=== PATIENT | male | born 1930 | race Asian ===

== ENCOUNTER 2021-01-04 16:06 | Emergency (ER) | payer OTHER ==
[~2021-01-04] VITALS: Ht 167.6 cm; Wt 57.0 kg
[2021-01-04 17:26] LABS: BASOPHILS % 0.3 % (0.0-2.0); EOSINOPHILS % 0.2 % (0.0-5.0); HEMATOCRIT. 36.2 % (42.0-52.0); LYMPHOCYTES % 8.5 % (20.0-50.0); MEAN CORPUSCULAR HEMOGLOBIN 32.3 pg (28.0-32.0); MEAN CORPUSCULAR VOLUME 97.7 fL (80.0-94.0); MEAN PLATELET VOLUME 7.8 fl (7.4-10.4); MONOCYTES % 6.2 % (2.0-8.0); NEUTROPHILS % 84.8 % (40.0-76.0); PLATELET 306 x1000/uL (130-400); RED CELL DISTRIBUTION WIDTH 14.5 % (11.6-14.6)
[2021-01-04 17:30] LABS: CHLORIDE 99 mEq/L (98-107)
[2021-01-04 17:37] LABS: ETHANOL BLOOD < 10 mg/dL
[2021-01-04] MEDS ORDERED: SODIUM CHLORIDE 0.9% 1,000 ML IV ONE (19:15)
[2021-01-04 19:48] LABS: CLARITY URINE CLEAR (CLEAR); COLOR URINE DARK YELLOW (YELLOW); KETONES URINE TRACE (NEGATIVE); LEUKOCYTE ESTERASE URINE TRACE (NEGATIVE); NITRITE URINE NEGATIVE (NEGATIVE); OCCULT BLOOD URINE NEGATIVE (NEGATIVE); PROTEIN URINE TRACE (NEGATIVE); SPECIFIC GRAVITY URINE 1.034 (1.005-1.030)
[2021-01-04 20:09] LABS: *AMPHETAMINES SCREEN URINE NEGATIVE (NEGATIVE); *BARBITURATES SCREEN URINE NEGATIVE (NEGATIVE); *BENZODIAZEPINES SCREEN URINE NEGATIVE (NEGATIVE); *COCAINE SCREEN URINE NEGATIVE (NEGATIVE); METHADONE URINE SCREEN NEGATIVE (NEGATIVE); OPIATES URINE SCREEN NEGATIVE (NEGATIVE)
[2021-01-04 20:10] LABS: CANNABINOID URINE SCREEN NEGATIVE (NEGATIVE); PHENCYCLIDINE URINE SCREEN NEGATIVE (NEGATIVE)
[2021-01-04 20:45] VITALS: BP 107/53
== END 2021-01-04 21:30 | disposition home or self-care (01) ==
LOC: ER 16:06
DX: R55 Syncope and collapse (principal); E86.0 Dehydration; D72.829 Elevated white blood cell count, unspecified; I25.10 Atherosclerotic heart disease of native coronary artery without angina pectoris; Z95.1 Presence of aortocoronary bypass graft; Z79.899 Other long term (current) drug therapy
CPT/HCPCS: 36415; 80053; 80305; 80320; 81003; 84484; 85025; 93005; 96360; 99284; J7030; G0480

== ENCOUNTER 2021-01-05 02:27 | Inpatient (IN) | payer OTHER ==
[~2021-01-05] VITALS: Ht 167.6 cm; Wt 55.4 kg
[2021-01-05] MEDS ORDERED: SODIUM CHLORIDE 0.9% 1,000 ML IV ONE (03:00)
[2021-01-05 03:44] LABS: HEMATOCRIT. 32.1 % (42.0-52.0); HEMOGLOBIN. 10.1 g/dL (14.0-18.0); MEAN CORPUSCULAR HEMOGLOBIN 31.7 pg (28.0-32.0); MEAN CORPUSCULAR VOLUME 101.3 fL (80.0-94.0); PLATELET 293 x1000/uL (130-400); RED BLOOD CELL COUNT 3.17 mill/uL (4.7-6.1); RED CELL DISTRIBUTION WIDTH 15.3 % (11.6-14.6)
[2021-01-05 03:57] LABS: CHLORIDE 95 mEq/L (98-107)
[2021-01-05] MEDS ORDERED: VANCOMYCIN 1 G PREMIX 200 ML IV SCH (04:45)
[2021-01-05] MEDS ORDERED: CEFEPIME 1,000 MG in DEXTROSE 5% WATER 50 ML IV SCH (04:45)
[2021-01-05] MEDS ORDERED: KETOROLAC 15MG/ML VIAL IV ONE (05:30)
[2021-01-05 05:45] LABS: PLATELET ESTIMATE NORMAL
[2021-01-05] MEDS ORDERED: ONDANSETRON HCL 4MG/2ML INJ IV PRN (07:15)
[2021-01-05] MEDS ORDERED: GUAIFENESIN 200MG/10ML SUGAR FREE UDC PO PRN (07:15)
[2021-01-05] MEDS ORDERED: TRAMADOL 50MG TABLET PO PRN (07:15)
[2021-01-05] MEDS ORDERED: ACETAMINOPHEN 325MG TABLET PO PRN ×2 (07:15)
[2021-01-05] MEDS ORDERED: SODIUM CHLORIDE 0.9% 1000ML BAG (SEPSIS BOLUS) IV NR (07:15)
[2021-01-05] MEDS ORDERED: CLONIDINE 0.1MG TABLET PO PRN (07:15)
[2021-01-05] MEDS ORDERED: ENOXAPARIN 40MG/0.4ML SYR SUBCUT SCH (07:15)
[2021-01-05] MEDS ORDERED: NITROGLYCERIN 0.4MG TABLET SL SL PRN (07:15)
[2021-01-05] MEDS ORDERED: MAGNESIUM/ALUMINUM HYDROXIDE/SIMETHICONE 30ML UDC PO PRN (07:15)
[2021-01-05] MEDS ORDERED: ZOLPIDEM TARTRATE 5MG TABLET PO PRN (07:15)
[2021-01-05] MEDS ORDERED: DOCUSATE SODIUM 100MG CAPSULE PO PRN (07:15)
[2021-01-05 07:29] LABS: T4 FREE 1.31 ng/dL (0.76-1.46)
[2021-01-05 07:53] LABS: FOLIC ACID (FOLATE) SERUM 3.6 ng/mL (>5.38)
[2021-01-05] MEDS ORDERED: NALOXONE HCL 0.4MG/ML VIAL IV PRN (08:00)
[2021-01-05] MEDS: CHOLECALCIFEROL (D3) 1000 UNIT TABLET PO SCH (09:00)
[2021-01-05] MEDS: FAMOTIDINE 20MG TABLET PO SCH (09:00)
[2021-01-05] MEDS: ENOXAPARIN 30MG/0.3ML SYR SUBCUT SCH (09:00)
[2021-01-05] MEDS: ZINC SULFATE 220 MG ( 50 ) CAPSULE PO SCH (09:00)
[2021-01-05] MEDS: ASCORBIC ACID 500 MG TABLET PO SCH ×2 (09:00→20:02)
[2021-01-05] MEDS: ASPIRIN 325MG EC TABLET PO SCH (09:00)
[2021-01-05] MEDS ORDERED: PIPERACILLIN/TAZ 3.375G PREMIX 50 ML IV SCH (09:00)
[2021-01-05 15:07] VITALS: BP 105/62
[2021-01-05 16:02] VITALS: BP 105/62
[2021-01-05] MEDS: SODIUM CHLORIDE 0.9% 1,000 ML IV SCH (16:56)
[2021-01-05] MEDS ORDERED: FOLIC ACID 1 MG in SODIUM CHLORIDE 0.9% 500 ML IV NR (18:00)
[2021-01-05 19:02] LABS: CLARITY URINE CLEAR (CLEAR); COLOR URINE YELLOW (YELLOW); KETONES URINE TRACE (NEGATIVE); LEUKOCYTE ESTERASE URINE NEGATIVE (NEGATIVE); NITRITE URINE NEGATIVE (NEGATIVE); OCCULT BLOOD URINE TRACE (NEGATIVE); PH URINE 5.5 (4.5-8.0); PROTEIN URINE NEGATIVE (NEGATIVE); SPECIFIC GRAVITY URINE 1.015 (1.005-1.030); UROBILINOGEN URINE 0.2 E.U./dL (0.2-1.0)
[2021-01-05 19:13] LABS: *BARBITURATES SCREEN URINE NEGATIVE (NEGATIVE)
[2021-01-05 19:14] LABS: *AMPHETAMINES SCREEN URINE NEGATIVE (NEGATIVE); *COCAINE SCREEN URINE NEGATIVE (NEGATIVE); CANNABINOID URINE SCREEN NEGATIVE (NEGATIVE); METHADONE URINE SCREEN NEGATIVE (NEGATIVE); OPIATES URINE SCREEN NEGATIVE (NEGATIVE); PHENCYCLIDINE URINE SCREEN NEGATIVE (NEGATIVE)
[2021-01-05 19:15] LABS: *BENZODIAZEPINES SCREEN URINE NEGATIVE (NEGATIVE)
[2021-01-05 20:00] VITALS: BP 110/63
[2021-01-05] MEDS: PIPERACILLIN/TAZOBACTAM 3.375 G in DEXTROSE 5% WATER 50 ML IV SCH (20:02)
[2021-01-06] VITALS (13 sets, daily range): BP systolic 83–141; BP diastolic 26–69
[2021-01-06 02:05] LABS: CREATINE KINASE MB FRACTION 19.9 ng/mL (0.5-3.6)
[2021-01-06] MEDS: SODIUM CHLORIDE 0.9% 1,000 ML IV SCH ×3 (02:57→20:52)
[2021-01-06] MEDS: ASPIRIN 325MG EC TABLET PO SCH (09:22)
[2021-01-06] MEDS: ASCORBIC ACID 500 MG TABLET PO SCH (09:22)
[2021-01-06] MEDS: CHOLECALCIFEROL (D3) 1000 UNIT TABLET PO SCH (09:22)
[2021-01-06] MEDS: PIPERACILLIN/TAZOBACTAM 3.375 G in DEXTROSE 5% WATER 50 ML IV SCH (09:22)
[2021-01-06] MEDS: FAMOTIDINE 20MG TABLET PO SCH (09:23)
[2021-01-06] MEDS: FOLIC ACID 1MG TABLET PO SCH (09:23)
[2021-01-06] MEDS: ZINC SULFATE 220 MG ( 50 ) CAPSULE PO SCH (09:23)
[2021-01-06 10:17] LABS: BASOPHILS % 0.1 % (0.0-2.0); EOSINOPHILS % 0.1 % (0.0-5.0); HEMATOCRIT. 24.2 % (42.0-52.0); HEMOGLOBIN. 8.3 g/dL (14.0-18.0); LYMPHOCYTES % 7.2 % (20.0-50.0); MEAN CORPUSCULAR HEMOGLOBIN 33.1 pg (28.0-32.0); MEAN CORPUSCULAR VOLUME 96.9 fL (80.0-94.0); MONOCYTES % 4.7 % (2.0-8.0); NEUTROPHILS % 87.9 % (40.0-76.0); PLATELET 216 x1000/uL (130-400); RED CELL DISTRIBUTION WIDTH 14.8 % (11.6-14.6)
[2021-01-06 11:04] LABS: CHLORIDE 112 mEq/L (98-107)
[2021-01-06 11:17] LABS: PHOSPHORUS 1.6 mg/dL (2.5-4.9)
[2021-01-06] MEDS: ENOXAPARIN 30MG/0.3ML SYR SUBCUT SCH (11:37)
[2021-01-06] MEDS: VANCOMYCIN 1 G PREMIX 200 ML IV SCH (13:51)
[2021-01-06 17:12] LABS: BG BASE EXCESS -11.2 mmol/L (-2.0-2.0); BG CARBOXYHEMOGLOBIN 0.2 % (0.5-1.5); BG DEOXYHEMOGLOBIN 0.6 % (0.0-5.0); BG HCO3 ACT 12.6 mmol/L (22.0-26.0); BG METHEMOGLOBIN 0.7 % (0.0-1.5); BG OXYGEN SATURATION 99.4 % (92.0-98.5); BG OXYHEMOGLOBIN 98.5 % (94.0-97.0); BG PCO2 20.8 mmHg (35.0-45.0); BG PH 7.401 (7.350-7.450); BG PO2 433.7 mmHg (75.0-100.0); BG SAMPLE SITE LEFT RADIAL; BG TOTAL HEMOGLOBIN 5.7 g/dL (12.0-18.0); BG VENT MODE MASK - NRB
[2021-01-06] MEDS ORDERED: SODIUM CHLORIDE 0.9% 100 ML IV ONE (17:30)
[2021-01-06] MEDS ORDERED: PANTOPRAZOLE 80 MG in SODIUM CHLORIDE 0.9% 100 ML IV SCH (18:00)
[2021-01-06] MEDS ORDERED: SODIUM BICARBONATE 8.4% 1 MEQ/ML 50ML SYR IV NR (18:00)
[2021-01-06] MEDS: PANTOPRAZOLE SODIUM 40 MG/VIAL IV SCH (18:04)
[2021-01-06] MEDS ORDERED: DOPAMINE 800MG PREMIX (DOUBLE) 250 ML IV PRN (21:45)
[2021-01-06] MEDS ORDERED: MIDAZOLAM 100MG/100ML PMX 100 ML IV PRN (21:45)
[2021-01-06] MEDS ORDERED: FENTANYL CITRATE/PF 2,500 MCG in SODIUM CHLORIDE 0.9% 200 ML IV PRN (22:00)
[2021-01-06] MEDS: PANTOPRAZOLE 80 MG in SODIUM CHLORIDE 0.9% 100 ML IV SCH (22:57)
[2021-01-06] MEDS ORDERED: NOREPINEPHRINE 8 MG in DEXT 5% WATER 242 ML IV PRN (23:00)
[2021-01-06] MEDS: MIDAZOLAM HCL 100 MG in SODIUM CHLORIDE 0.9% 100 ML IV PRN (23:23)
[2021-01-06] MEDS ORDERED: OCTREOTIDE ACETATE 50 MCG/ML 1ML IV SCH (23:30)
[2021-01-06 23:39] LABS: BG BASE EXCESS -22.7 mmol/L (-2.0-2.0); BG CARBOXYHEMOGLOBIN 0.2 % (0.5-1.5); BG DEOXYHEMOGLOBIN 0.8 % (0.0-5.0); BG FRACTION INSPIRED OXYGEN 100; BG HCO3 ACT 5.8 mmol/L (22.0-26.0); BG METHEMOGLOBIN 0.5 % (0.0-1.5); BG OXYGEN SATURATION 99.2 % (92.0-98.5); BG OXYHEMOGLOBIN 98.5 % (94.0-97.0); BG PCO2 20.7 mmHg (35.0-45.0); BG PH 7.065 (7.350-7.450); BG PO2 517.8 mmHg (75.0-100.0); BG SAMPLE SITE RIGHT FEMORAL; BG TOTAL HEMOGLOBIN 9.7 g/dL (12.0-18.0); BG VENT MODE VENT - AC
[2021-01-07] VITALS (97 sets, daily range): BP systolic 93–144; BP diastolic 46–77
[2021-01-07] MEDS: VASOPRESSIN 20 UNIT in SODIUM CHLORIDE 0.9% 99 ML IV PRN ×3 (00:02→17:24)
[2021-01-07] MEDS: OCTREOTIDE 1,000 MCG in SODIUM CHLORIDE 0.9% 98 ML IV SCH ×2 (00:03→17:24)
[2021-01-07] MEDS ORDERED: SODIUM BICARBONATE 8.4% 1 MEQ/ML 50ML SYR IV SCH ×3 (00:15→03:00)
[2021-01-07 00:17] LABS: CHLORIDE 116 mEq/L (98-107)
[2021-01-07 00:24] LABS: HEMATOCRIT. 28.8 % (42.0-52.0); HEMOGLOBIN. 9.3 g/dL (14.0-18.0); MEAN CORPUSCULAR HEMOGLOBIN 32.4 pg (28.0-32.0); MEAN PLATELET VOLUME 8.3 fl (7.4-10.4); PLATELET 175 x1000/uL (130-400); RED BLOOD CELL COUNT 2.88 mill/uL (4.7-6.1)
[2021-01-07] MEDS ORDERED: LACTULOSE 20G/30ML UDC PO SCH (00:30)
[2021-01-07 00:31] LABS: INR 1.6; PARTIAL THROMBOPLASTIN TIME 50.2 sec (23.4-31.0); PROTHROMBIN TIME 16.3 sec (9.6-11.0)
[2021-01-07] MEDS: VANCOMYCIN 1 G PREMIX 200 ML IV SCH (01:27)
[2021-01-07 04:06] LABS: BG CARBOXYHEMOGLOBIN 0.3 % (0.5-1.5); BG DEOXYHEMOGLOBIN 1.3 % (0.0-5.0); BG FRACTION INSPIRED OXYGEN 70; BG METHEMOGLOBIN 0.6 % (0.0-1.5); BG OXYGEN SATURATION 98.7 % (92.0-98.5); BG OXYHEMOGLOBIN 97.8 % (94.0-97.0); BG PCO2 26.5 mmHg (35.0-45.0); BG PH 7.538 (7.350-7.450); BG PO2 308.9 mmHg (75.0-100.0); BG SAMPLE SITE LEFT RADIAL; BG TOTAL HEMOGLOBIN 8.8 g/dL (12.0-18.0); BG VENT MODE VENT - AC
[2021-01-07] MEDS: HYDROCORTISONE SOD SUCCINATE 100 MG/2 ML VIAL IV SCH ×3 (05:12→21:08)
[2021-01-07] MEDS: PIPERACILLIN/TAZOBACTAM 3.375 G in DEXTROSE 5% WATER 50 ML IV SCH ×3 (06:53→20:22)
[2021-01-07 07:06] LABS: PLATELET ESTIMATE NORMAL
[2021-01-07 07:09] LABS: CHLORIDE 114 mEq/L (98-107)
[2021-01-07 07:15] LABS: PHOSPHORUS 2.3 mg/dL (2.5-4.9)
[2021-01-07] MEDS: MIDAZOLAM HCL 100 MG in SODIUM CHLORIDE 0.9% 100 ML IV PRN (07:45)
[2021-01-07 07:46] LABS: HEMATOCRIT. 30.5 % (42.0-52.0); HEMOGLOBIN. 10.6 g/dL (14.0-18.0); MEAN CORPUSCULAR HEMOGLOBIN 32.6 pg (28.0-32.0); MEAN CORPUSCULAR VOLUME 93.5 fL (80.0-94.0); MEAN PLATELET VOLUME 8.7 fl (7.4-10.4); PLATELET 137 x1000/uL (130-400); RED BLOOD CELL COUNT 3.26 mill/uL (4.7-6.1); RED CELL DISTRIBUTION WIDTH 14.7 % (11.6-14.6)
[2021-01-07] MEDS ORDERED: DEXTROSE 50% WATER 50ML SYRINGE IV PRN (08:00)
[2021-01-07] MEDS: INSULIN LISPRO 100 UNITS/ML SUBCUT SCH ×3 (08:20→18:29)
[2021-01-07] MEDS: IPRATROPIUM/ALBUTEROL 0.5-3(2.5)MG/3ML NEB NEB PRN ×3 (08:35→16:18)
[2021-01-07] MEDS: SODIUM CHLORIDE 0.45% 1,000 ML IV SCH ×2 (08:48→20:23)
[2021-01-07] MEDS: ASCORBIC ACID 500 MG TABLET PO SCH ×2 (09:00→20:22)
[2021-01-07] MEDS: PANTOPRAZOLE SODIUM 40 MG/VIAL IV SCH ×2 (09:00→18:26)
[2021-01-07] MEDS: CHOLECALCIFEROL (D3) 1000 UNIT TABLET PO SCH (09:00)
[2021-01-07] MEDS: FOLIC ACID 1MG TABLET PO SCH (09:00)
[2021-01-07] MEDS: ZINC SULFATE 220 MG ( 50 ) CAPSULE PO SCH (09:00)
[2021-01-07] MEDS: PHYTONADIONE 10MG/ML AMP SUBCUT SCH (11:06)
[2021-01-07] MEDS: PANTOPRAZOLE 80 MG in SODIUM CHLORIDE 0.9% 100 ML IV SCH (11:07)
[2021-01-07 11:20] LABS: BG BASE EXCESS -1.3 mmol/L (-2.0-2.0); BG CARBOXYHEMOGLOBIN 0.2 % (0.5-1.5); BG DEOXYHEMOGLOBIN 1.4 % (0.0-5.0); BG FRACTION INSPIRED OXYGEN 50; BG HCO3 ACT 21.1 mmol/L (22.0-26.0); BG METHEMOGLOBIN 0.2 % (0.0-1.5); BG OXYGEN SATURATION 98.6 % (92.0-98.5); BG OXYHEMOGLOBIN 98.2 % (94.0-97.0); BG PH 7.496 (7.350-7.450); BG PO2 229.4 mmHg (75.0-100.0); BG SAMPLE SITE LEFT BRACHIAL; BG TOTAL HEMOGLOBIN 10.1 g/dL (12.0-18.0); BG VENT MODE VENT - AC
[2021-01-07] MEDS: BLOOD SUGAR DIAGNOSTIC STRIP TEST SCH ×2 (12:39→18:00)
[2021-01-07] MEDS: LACTULOSE 20G/30ML UDC PO SCH ×2 (14:00→21:08)
[2021-01-07 15:16] LABS: HEMATOCRIT 22.9 % (42.0-52.0); HEMOGLOBIN 7.8 g/dL (14.0-18.0)
[2021-01-07 15:34] LABS: INR 1.3; PROTHROMBIN TIME 14.1 sec (9.6-11.0)
[2021-01-07] MEDS ORDERED: PANTOPRAZOLE SODIUM 40 MG/VIAL IV SCH (17:00)
[2021-01-07] MEDS ORDERED: VANCOMYCIN 1 G PREMIX 200 ML IV NR (18:00)
[2021-01-07 21:09] LABS: PLATELET ESTIMATE NORMAL
[2021-01-07 23:29] LABS: HEMOGLOBIN 7.1 g/dL (14.0-18.0)
[2021-01-07 23:35] LABS: HEMATOCRIT 20.4 % (42.0-52.0)
[2021-01-08] VITALS (95 sets, daily range): BP systolic 89–154; BP diastolic 42–81
[2021-01-08] MEDS: VASOPRESSIN 20 UNIT in SODIUM CHLORIDE 0.9% 99 ML IV PRN (01:03)
[2021-01-08] MEDS: INSULIN LISPRO 100 UNITS/ML SUBCUT SCH ×5 (01:04→23:51)
[2021-01-08 05:36] LABS: HEMATOCRIT. 25.6 % (42.0-52.0); HEMOGLOBIN. 8.9 g/dL (14.0-18.0); MEAN CORPUSCULAR HEMOGLOBIN 31.9 pg (28.0-32.0); MEAN CORPUSCULAR VOLUME 91.6 fL (80.0-94.0); PLATELET 62 x1000/uL (130-400); RED BLOOD CELL COUNT 2.79 mill/uL (4.7-6.1); RED CELL DISTRIBUTION WIDTH 14.5 % (11.6-14.6)
[2021-01-08 05:47] LABS: INR 1.2; PROTHROMBIN TIME 12.6 sec (9.6-11.0)
[2021-01-08] MEDS: LACTULOSE 20G/30ML UDC PO SCH ×2 (06:00→13:24)
[2021-01-08] MEDS: BLOOD SUGAR DIAGNOSTIC STRIP TEST SCH ×5 (06:01→23:51)
[2021-01-08] MEDS: SODIUM CHLORIDE 0.45% 1,000 ML IV SCH (06:09)
[2021-01-08] MEDS: HYDROCORTISONE SOD SUCCINATE 100 MG/2 ML VIAL IV SCH ×3 (06:09→21:03)
[2021-01-08 07:03] LABS: CHLORIDE 115 mEq/L (98-107)
[2021-01-08] MEDS: IPRATROPIUM/ALBUTEROL 0.5-3(2.5)MG/3ML NEB NEB PRN ×3 (08:18→16:27)
[2021-01-08] MEDS ORDERED: FOLIC ACID 1MG TABLET PO SCH (09:00)
[2021-01-08] MEDS: CHOLECALCIFEROL (D3) 1000 UNIT TABLET PO SCH (09:00)
[2021-01-08] MEDS: ZINC SULFATE 220 MG ( 50 ) CAPSULE PO SCH (09:00)
[2021-01-08] MEDS: ASCORBIC ACID 500 MG TABLET PO SCH ×2 (09:00→20:05)
[2021-01-08] MEDS: FOLIC ACID 1MG TABLET PO SCH (09:00)
[2021-01-08] MEDS: PHYTONADIONE 10MG/ML AMP SUBCUT SCH (10:50)
[2021-01-08] MEDS: PANTOPRAZOLE SODIUM 40 MG/VIAL IV SCH ×2 (10:50→17:48)
[2021-01-08] MEDS: PIPERACILLIN/TAZOBACTAM 3.375 G in DEXTROSE 5% WATER 50 ML IV SCH ×3 (10:51→21:03)
[2021-01-08 12:10] LABS: PLATELET ESTIMATE DECREASED
[2021-01-08 12:21] LABS: HEMOGLOBIN 9.3 g/dL (14.0-18.0)
[2021-01-08] MEDS: KCL 20MEQ/100ML PREMIX 100 ML IV SCH ×2 (13:23→17:49)
[2021-01-08] MEDS: DEXTROSE 5% WATER 1,000 ML IV SCH (13:27)
[2021-01-08] MEDS: OCTREOTIDE 1,000 MCG in SODIUM CHLORIDE 0.9% 98 ML IV SCH (14:16)
[2021-01-08 19:17] LABS: HEMATOCRIT 25.4 % (42.0-52.0); HEMOGLOBIN 8.9 g/dL (14.0-18.0)
[2021-01-08] MEDS: SUCRALFATE 1 G/10 ML UDC PO SCH ×2 (20:05→23:56)
[2021-01-08] MEDS ORDERED: VANCOMYCIN 750 MG PREMIX 150 ML IV SCH (21:00)
[2021-01-09] VITALS (98 sets, daily range): BP systolic 80–137; BP diastolic 46–82
[2021-01-09 01:17] LABS: HEMATOCRIT 25.5 % (42.0-52.0); HEMOGLOBIN 8.8 g/dL (14.0-18.0)
[2021-01-09] MEDS: SUCRALFATE 1 G/10 ML UDC PO SCH ×5 (03:23→20:34)
[2021-01-09 05:57] LABS: HEMATOCRIT. 25.6 % (42.0-52.0); HEMOGLOBIN. 8.6 g/dL (14.0-18.0); MEAN CORPUSCULAR HEMOGLOBIN 31.2 pg (28.0-32.0); MEAN CORPUSCULAR VOLUME 92.6 fL (80.0-94.0); PLATELET 58 x1000/uL (130-400); RED BLOOD CELL COUNT 2.76 mill/uL (4.7-6.1); RED CELL DISTRIBUTION WIDTH 14.9 % (11.6-14.6)
[2021-01-09] MEDS: INSULIN LISPRO 100 UNITS/ML SUBCUT SCH ×3 (06:00→18:09)
[2021-01-09 06:03] LABS: INR 1.1; PROTHROMBIN TIME 11.9 sec (9.6-11.0)
[2021-01-09] MEDS: BLOOD SUGAR DIAGNOSTIC STRIP TEST SCH ×3 (06:06→18:00)
[2021-01-09] MEDS: PIPERACILLIN/TAZOBACTAM 3.375 G in DEXTROSE 5% WATER 50 ML IV SCH ×3 (06:07→21:01)
[2021-01-09] MEDS: HYDROCORTISONE SOD SUCCINATE 100 MG/2 ML VIAL IV SCH ×3 (06:07→21:01)
[2021-01-09 06:11] LABS: CHLORIDE 116 mEq/L (98-107)
[2021-01-09] MEDS: DEXTROSE 5% WATER 1,000 ML IV SCH (07:07)
[2021-01-09] MEDS: IPRATROPIUM/ALBUTEROL 0.5-3(2.5)MG/3ML NEB NEB PRN ×3 (08:29→16:09)
[2021-01-09] MEDS: PHYTONADIONE 10MG/ML AMP SUBCUT SCH (08:49)
[2021-01-09] MEDS: PANTOPRAZOLE SODIUM 40 MG/VIAL IV SCH ×2 (08:49→18:09)
[2021-01-09] MEDS: CHOLECALCIFEROL (D3) 1000 UNIT TABLET PO SCH (09:00)
[2021-01-09] MEDS: FOLIC ACID 1MG TABLET PO SCH (09:00)
[2021-01-09] MEDS: ASCORBIC ACID 500 MG TABLET PO SCH ×2 (09:00→20:34)
[2021-01-09] MEDS: ZINC SULFATE 220 MG ( 50 ) CAPSULE PO SCH (09:00)
[2021-01-09] MEDS: OCTREOTIDE 1,000 MCG in SODIUM CHLORIDE 0.9% 98 ML IV SCH (09:48)
[2021-01-09] MEDS: VANCOMYCIN 750 MG PREMIX 150 ML IV SCH (13:29)
[2021-01-09 16:16] LABS: PLATELET ESTIMATE DECREASED
[2021-01-09] MEDS ORDERED: MIDAZOLAM HCL 5 MG/5 ML VIAL ONE (17:07)
[2021-01-09] MEDS ORDERED: FENTANYL CITRATE/PF 50MCG/ML 2ML VIAL ONE (17:07)
[2021-01-09] MEDS ORDERED: MIDAZOLAM HCL 2 MG/2 ML VIAL IV PRN (17:18)
[2021-01-09] MEDS ORDERED: FENTANYL CITRATE/PF 50MCG/ML 2ML VIAL IV PRN (17:29)
[2021-01-09] MEDS ORDERED: DIPHENHYDRAMINE 50MG/ML VIAL IV NR (17:30)
[2021-01-09] MEDS ORDERED: DIPHENHYDRAMINE 50MG/ML VIAL IV PRN (17:37)
[2021-01-09] MEDS ORDERED: DIAZEPAM 5 MG/ML 2ML CPJ ONE (17:46)
[2021-01-09] MEDS: METOCLOPRAMIDE HCL 10MG/2ML VIAL IV SCH (20:34)
[2021-01-10] VITALS (78 sets, daily range): BP systolic 97–143; BP diastolic 49–96
[2021-01-10] MEDS: BLOOD SUGAR DIAGNOSTIC STRIP TEST SCH ×4 (00:30→17:16)
[2021-01-10] MEDS: METOCLOPRAMIDE HCL 10MG/2ML VIAL IV SCH ×4 (00:30→17:23)
[2021-01-10] MEDS: DEXTROSE 5% WATER 1,000 ML IV SCH (00:30)
[2021-01-10] MEDS: INSULIN LISPRO 100 UNITS/ML SUBCUT SCH ×4 (00:30→17:27)
[2021-01-10] MEDS: PIPERACILLIN/TAZOBACTAM 3.375 G in DEXTROSE 5% WATER 50 ML IV SCH ×3 (06:15→22:16)
[2021-01-10] MEDS: HYDROCORTISONE SOD SUCCINATE 100 MG/2 ML VIAL IV SCH ×3 (06:15→22:16)
[2021-01-10 06:23] LABS: CHLORIDE 114 mEq/L (98-107); HEMATOCRIT. 25.2 % (42.0-52.0); HEMOGLOBIN. 8.6 g/dL (14.0-18.0); MEAN CORPUSCULAR VOLUME 93.9 fL (80.0-94.0); MEAN PLATELET VOLUME 9.1 fl (7.4-10.4); PLATELET 59 x1000/uL (130-400); RED BLOOD CELL COUNT 2.69 mill/uL (4.7-6.1); RED CELL DISTRIBUTION WIDTH 14.9 % (11.6-14.6)
[2021-01-10 06:29] LABS: PHOSPHORUS 1.9 mg/dL (2.5-4.9)
[2021-01-10] MEDS: OCTREOTIDE 1,000 MCG in SODIUM CHLORIDE 0.9% 98 ML IV SCH (06:41)
[2021-01-10 08:09] LABS: BG BASE EXCESS -0.1 mmol/L (-2.0-2.0); BG CARBOXYHEMOGLOBIN 0.3 % (0.5-1.5); BG DEOXYHEMOGLOBIN 1.4 % (0.0-5.0); BG FRACTION INSPIRED OXYGEN 35; BG HCO3 ACT 23.8 mmol/L (22.0-26.0); BG METHEMOGLOBIN 0.3 % (0.0-1.5); BG OXYGEN SATURATION 98.6 % (92.0-98.5); BG PCO2 35.3 mmHg (35.0-45.0); BG PH 7.446 (7.350-7.450); BG PO2 144.7 mmHg (75.0-100.0); BG SAMPLE SITE RIGHT RADIAL; BG TOTAL HEMOGLOBIN 9.1 g/dL (12.0-18.0); BG TOTAL RESPIRATORY RATE 10 b/min; BG VENT MODE VENT - AC
[2021-01-10] MEDS ORDERED: POTASSIUM PHOS,M-BASIC-D-BASIC 15 MMOL in DEXT 5% WATER 245 ML IV SCH (10:00)
[2021-01-10] MEDS: CHOLECALCIFEROL (D3) 1000 UNIT TABLET PO SCH (11:06)
[2021-01-10] MEDS: VANCOMYCIN 750 MG PREMIX 150 ML IV SCH (11:06)
[2021-01-10] MEDS: ASCORBIC ACID 500 MG TABLET PO SCH ×2 (11:07→20:19)
[2021-01-10] MEDS: FOLIC ACID 1MG TABLET PO SCH (11:07)
[2021-01-10] MEDS: PANTOPRAZOLE SODIUM 40 MG/VIAL IV SCH ×2 (11:07→17:00)
[2021-01-10] MEDS: ZINC SULFATE 220 MG ( 50 ) CAPSULE PO SCH (11:07)
[2021-01-10] MEDS ORDERED: SUCRALFATE 1G TABLET PO SCH (14:00)
[2021-01-10] MEDS ORDERED: FLUCONAZOLE 200 MG/100ML BAG 100 ML IV NR (16:00)
[2021-01-10 16:17] LABS: PLATELET ESTIMATE DECREASED
[2021-01-10 16:43] LABS: HEMATOCRIT 25.4 % (42.0-52.0); HEMOGLOBIN 8.7 g/dL (14.0-18.0)
[2021-01-10] MEDS: SUCRALFATE 1 G/10 ML UDC PO SCH (22:16)
[2021-01-11] VITALS (77 sets, daily range): BP systolic 99–146; BP diastolic 43–96
[2021-01-11] MEDS: METOCLOPRAMIDE HCL 10MG/2ML VIAL IV SCH ×5 (01:26→23:44)
[2021-01-11] MEDS: DEXTROSE 5% WATER 1,000 ML IV SCH ×2 (01:26→20:20)
[2021-01-11 04:46] LABS: HEMOGLOBIN. 8.7 g/dL (14.0-18.0); MEAN CORPUSCULAR HEMOGLOBIN 31.6 pg (28.0-32.0); MEAN CORPUSCULAR VOLUME 94.1 fL (80.0-94.0); MEAN PLATELET VOLUME 9.2 fl (7.4-10.4); PLATELET 71 x1000/uL (130-400); RED BLOOD CELL COUNT 2.76 mill/uL (4.7-6.1); RED CELL DISTRIBUTION WIDTH 14.7 % (11.6-14.6)
[2021-01-11 05:01] LABS: PHOSPHORUS 2.6 mg/dL (2.5-4.9)
[2021-01-11] MEDS: HYDROCORTISONE SOD SUCCINATE 100 MG/2 ML VIAL IV SCH ×3 (05:26→21:06)
[2021-01-11] MEDS: SUCRALFATE 1 G/10 ML UDC PO SCH ×3 (05:28→21:06)
[2021-01-11] MEDS: BLOOD SUGAR DIAGNOSTIC STRIP TEST SCH ×5 (05:28→23:39)
[2021-01-11 05:37] LABS: PLATELET ESTIMATE DECREASED
[2021-01-11] MEDS: INSULIN LISPRO 100 UNITS/ML SUBCUT SCH ×5 (05:42→23:44)
[2021-01-11] MEDS: IPRATROPIUM/ALBUTEROL 0.5-3(2.5)MG/3ML NEB NEB PRN ×2 (07:58→15:34)
[2021-01-11] MEDS: FOLIC ACID 1MG TABLET PO SCH (09:00)
[2021-01-11] MEDS: ZINC SULFATE 220 MG ( 50 ) CAPSULE PO SCH (09:00)
[2021-01-11] MEDS: CHOLECALCIFEROL (D3) 1000 UNIT TABLET PO SCH (09:00)
[2021-01-11] MEDS: ASCORBIC ACID 500 MG TABLET PO SCH ×2 (09:00→21:00)
[2021-01-11] MEDS: PANTOPRAZOLE SODIUM 40 MG/VIAL IV SCH ×2 (09:18→16:20)
[2021-01-11] MEDS ORDERED: NALOXONE HCL 0.4MG/ML VIAL IV PRN (10:45)
[2021-01-11] MEDS: MORPHINE SULFATE 2 MG/ML CPJ (NOT FOR IM USE) IV PRN ×2 (12:48→22:39)
[2021-01-11] MEDS: LORAZEPAM 2MG/ML CPJ IV PRN (12:48)
[2021-01-11] MEDS: FLUCONAZOLE 100MG/50ML in BAG IV SCH (16:20)
[2021-01-11 16:53] LABS: HEMATOCRIT 26.6 % (42.0-52.0)
[2021-01-12] VITALS (84 sets, daily range): BP systolic 97–151; BP diastolic 49–85
[2021-01-12] MEDS: HYDROCORTISONE SOD SUCCINATE 100 MG/2 ML VIAL IV SCH ×3 (05:14→22:00)
[2021-01-12] MEDS: SUCRALFATE 1 G/10 ML UDC PO SCH ×3 (05:14→22:00)
[2021-01-12] MEDS: METOCLOPRAMIDE HCL 10MG/2ML VIAL IV SCH ×3 (05:14→17:34)
[2021-01-12] MEDS: BLOOD SUGAR DIAGNOSTIC STRIP TEST SCH ×3 (05:14→17:26)
[2021-01-12] MEDS: INSULIN LISPRO 100 UNITS/ML SUBCUT SCH ×3 (05:15→17:26)
[2021-01-12] MEDS: MORPHINE SULFATE 2 MG/ML CPJ (NOT FOR IM USE) IV PRN (05:17)
[2021-01-12 06:18] LABS: HEMATOCRIT. 25.8 % (42.0-52.0); HEMOGLOBIN. 8.7 g/dL (14.0-18.0); MEAN CORPUSCULAR HEMOGLOBIN 31.6 pg (28.0-32.0); MEAN CORPUSCULAR VOLUME 93.1 fL (80.0-94.0); MEAN PLATELET VOLUME 9.3 fl (7.4-10.4); PLATELET 87 x1000/uL (130-400); RED BLOOD CELL COUNT 2.77 mill/uL (4.7-6.1); RED CELL DISTRIBUTION WIDTH 14.3 % (11.6-14.6)
[2021-01-12 06:26] LABS: PHOSPHORUS 2.8 mg/dL (2.5-4.9)
[2021-01-12 06:32] LABS: INR 1.1; PROTHROMBIN TIME 11.5 sec (9.6-11.0)
[2021-01-12 08:17] LABS: BG BASE EXCESS -0.1 mmol/L (-2.0-2.0); BG CARBOXYHEMOGLOBIN 0.3 % (0.5-1.5); BG DEOXYHEMOGLOBIN 1.7 % (0.0-5.0); BG FRACTION INSPIRED OXYGEN 30; BG HCO3 ACT 22.8 mmol/L (22.0-26.0); BG METHEMOGLOBIN 0.3 % (0.0-1.5); BG OXYGEN SATURATION 98.3 % (92.0-98.5); BG OXYHEMOGLOBIN 97.7 % (94.0-97.0); BG PCO2 30.8 mmHg (35.0-45.0); BG PH 7.488 (7.350-7.450); BG PO2 132.6 mmHg (75.0-100.0); BG SAMPLE SITE LEFT RADIAL; BG TOTAL HEMOGLOBIN 9.7 g/dL (12.0-18.0); BG VENT MODE VENT - AC
[2021-01-12] MEDS ORDERED: BACTERIOSTATIC SODIUM CHLORIDE 0.9% 30ML VIAL IJ ONE (08:23)
[2021-01-12] MEDS: PANTOPRAZOLE SODIUM 40 MG/VIAL IV SCH ×2 (08:51→17:34)
[2021-01-12] MEDS: ASCORBIC ACID 500 MG TABLET PO SCH ×2 (08:52→21:00)
[2021-01-12] MEDS: FOLIC ACID 1MG TABLET PO SCH (08:52)
[2021-01-12] MEDS: ZINC SULFATE 220 MG ( 50 ) CAPSULE PO SCH (08:53)
[2021-01-12] MEDS: CHOLECALCIFEROL (D3) 1000 UNIT TABLET PO SCH (08:53)
[2021-01-12] MEDS ORDERED: DIAZEPAM 5 MG/ML 2ML CPJ ONE (11:45)
[2021-01-12] MEDS ORDERED: FENTANYL CITRATE/PF 50MCG/ML 2ML VIAL ONE (11:45)
[2021-01-12] MEDS ORDERED: DIPHENHYDRAMINE 50MG/ML VIAL ONE (11:45)
[2021-01-12] MEDS ORDERED: MIDAZOLAM HCL 5 MG/5 ML VIAL ONE (11:45)
[2021-01-12] MEDS ORDERED: MIDAZOLAM HCL 5 MG/5 ML VIAL IV PRN (11:57)
[2021-01-12] MEDS ORDERED: FENTANYL CITRATE/PF 50MCG/ML 2ML VIAL IV PRN (11:58)
[2021-01-12] MEDS ORDERED: DIAZEPAM 5 MG/ML 2ML CPJ IV PRN (12:04)
[2021-01-12] MEDS: DEXTROSE 5% WATER 1,000 ML IV SCH (15:34)
[2021-01-12] MEDS: FLUCONAZOLE 100MG/50ML in BAG IV SCH (15:35)
[2021-01-12 17:07] LABS: PLATELET ESTIMATE DECREASED
[2021-01-12 18:00] LABS: HEMATOCRIT 26.6 % (42.0-52.0); HEMOGLOBIN 9.1 g/dL (14.0-18.0)
[2021-01-13] VITALS (94 sets, daily range): BP systolic 98–152; BP diastolic 61–100
[2021-01-13] MEDS: METOCLOPRAMIDE HCL 10MG/2ML VIAL IV SCH ×4 (00:09→18:20)
[2021-01-13] MEDS: BLOOD SUGAR DIAGNOSTIC STRIP TEST SCH ×4 (00:10→18:16)
[2021-01-13] MEDS: DEXTROSE 5% WATER 1,000 ML IV SCH ×2 (00:12→20:34)
[2021-01-13] MEDS: SUCRALFATE 1 G/10 ML UDC PO SCH ×3 (05:27→21:27)
[2021-01-13] MEDS: HYDROCORTISONE SOD SUCCINATE 100 MG/2 ML VIAL IV SCH ×3 (05:27→21:27)
[2021-01-13] MEDS: INSULIN LISPRO 100 UNITS/ML SUBCUT SCH ×4 (05:49→18:00)
[2021-01-13 06:41] LABS: HEMATOCRIT. 27.6 % (42.0-52.0); HEMOGLOBIN. 9.3 g/dL (14.0-18.0); MEAN CORPUSCULAR VOLUME 94.4 fL (80.0-94.0); PLATELET 110 x1000/uL (130-400); RED BLOOD CELL COUNT 2.93 mill/uL (4.7-6.1); RED CELL DISTRIBUTION WIDTH 14.9 % (11.6-14.6)
[2021-01-13 06:47] LABS: CHLORIDE 108 mEq/L (98-107)
[2021-01-13 06:53] LABS: PHOSPHORUS 2.8 mg/dL (2.5-4.9)
[2021-01-13 08:16] LABS: BG BASE EXCESS -2.9 mmol/L (-2.0-2.0); BG CARBOXYHEMOGLOBIN 0.3 % (0.5-1.5); BG FRACTION INSPIRED OXYGEN 30; BG HCO3 ACT 19.3 mmol/L (22.0-26.0); BG METHEMOGLOBIN 0.1 % (0.0-1.5); BG OXYHEMOGLOBIN 97.6 % (94.0-97.0); BG PCO2 25.6 mmHg (35.0-45.0); BG PH 7.495 (7.350-7.450); BG PO2 117.9 mmHg (75.0-100.0); BG TOTAL HEMOGLOBIN 10.2 g/dL (12.0-18.0); BG VENT MODE VENT - AC
[2021-01-13] MEDS: ASCORBIC ACID 500 MG TABLET PO SCH ×2 (09:05→21:27)
[2021-01-13] MEDS: FOLIC ACID 1MG TABLET PO SCH (09:05)
[2021-01-13] MEDS: ZINC SULFATE 220 MG ( 50 ) CAPSULE PO SCH (09:05)
[2021-01-13] MEDS: PANTOPRAZOLE SODIUM 40 MG/VIAL IV SCH ×2 (09:05→18:20)
[2021-01-13] MEDS: CYANOCOBALAMIN 1000MCG/ML VIAL IM SCH (09:06)
[2021-01-13] MEDS: CHOLECALCIFEROL (D3) 1000 UNIT TABLET PO SCH (09:06)
[2021-01-13 11:02] LABS: PLATELET ESTIMATE SLIGHTLY DECREASED
[2021-01-13] MEDS: LORAZEPAM 2MG/ML CPJ IV PRN (12:06)
[2021-01-13] MEDS: MORPHINE SULFATE 2 MG/ML CPJ (NOT FOR IM USE) IV PRN (12:07)
[2021-01-13] MEDS: FENTANYL CITRATE/PF 2,500 MCG in SODIUM CHLORIDE 0.9% 200 ML IV PRN (14:34)
[2021-01-13] MEDS: FLUCONAZOLE 100MG/50ML in BAG IV SCH (15:59)
[2021-01-13 17:03] LABS: HEMATOCRIT 31.3 % (42.0-52.0); HEMOGLOBIN 10.7 g/dL (14.0-18.0)
[2021-01-14] VITALS (93 sets, daily range): BP systolic 103–147; BP diastolic 55–102
[2021-01-14] MEDS: BLOOD SUGAR DIAGNOSTIC STRIP TEST SCH ×4 (00:39→18:38)
[2021-01-14] MEDS: METOCLOPRAMIDE HCL 10MG/2ML VIAL IV SCH ×4 (00:46→18:51)
[2021-01-14] MEDS: INSULIN LISPRO 100 UNITS/ML SUBCUT SCH ×4 (05:26→18:00)
[2021-01-14 05:43] LABS: PHOSPHORUS 3.7 mg/dL (2.5-4.9)
[2021-01-14] MEDS: SUCRALFATE 1 G/10 ML UDC PO SCH ×3 (05:47→21:32)
[2021-01-14] MEDS: HYDROCORTISONE SOD SUCCINATE 100 MG/2 ML VIAL IV SCH ×3 (05:47→21:32)
[2021-01-14 05:52] LABS: HEMATOCRIT. 28.1 % (42.0-52.0); HEMOGLOBIN. 9.6 g/dL (14.0-18.0); MEAN CORPUSCULAR HEMOGLOBIN 32.2 pg (28.0-32.0); MEAN CORPUSCULAR VOLUME 93.9 fL (80.0-94.0); PLATELET 137 x1000/uL (130-400); RED BLOOD CELL COUNT 2.99 mill/uL (4.7-6.1); RED CELL DISTRIBUTION WIDTH 15.1 % (11.6-14.6)
[2021-01-14 07:45] LABS: PLATELET ESTIMATE NORMAL
[2021-01-14 08:36] LABS: BG BASE EXCESS -5.7 mmol/L (-2.0-2.0); BG CARBOXYHEMOGLOBIN 0.3 % (0.5-1.5); BG DEOXYHEMOGLOBIN 1.2 % (0.0-5.0); BG FRACTION INSPIRED OXYGEN 40; BG HCO3 ACT 17.9 mmol/L (22.0-26.0); BG METHEMOGLOBIN 0.4 % (0.0-1.5); BG OXYGEN SATURATION 98.8 % (92.0-98.5); BG OXYHEMOGLOBIN 98.1 % (94.0-97.0); BG PCO2 28.9 mmHg (35.0-45.0); BG PH 7.411 (7.350-7.450); BG PO2 191.6 mmHg (75.0-100.0); BG SAMPLE SITE LEFT RADIAL; BG TOTAL HEMOGLOBIN 9.9 g/dL (12.0-18.0); BG TOTAL RESPIRATORY RATE 10 b/min; BG VENT MODE VENT - AC
[2021-01-14] MEDS: CHOLECALCIFEROL (D3) 1000 UNIT TABLET PO SCH (09:10)
[2021-01-14] MEDS: ZINC SULFATE 220 MG ( 50 ) CAPSULE PO SCH (09:10)
[2021-01-14] MEDS: CYANOCOBALAMIN 1000MCG/ML VIAL IM SCH (09:10)
[2021-01-14] MEDS: PANTOPRAZOLE SODIUM 40 MG/VIAL IV SCH ×2 (09:10→16:54)
[2021-01-14] MEDS: ASCORBIC ACID 500 MG TABLET PO SCH ×2 (09:10→21:32)
[2021-01-14] MEDS: FOLIC ACID 1MG TABLET PO SCH (09:10)
[2021-01-14 16:45] LABS: HEMATOCRIT 28.4 % (42.0-52.0); HEMOGLOBIN 9.7 g/dL (14.0-18.0)
[2021-01-14] MEDS: FLUCONAZOLE 100MG/50ML in BAG IV SCH (16:54)
[2021-01-15] VITALS (96 sets, daily range): BP systolic 92–143; BP diastolic 43–103
[2021-01-15] MEDS: BLOOD SUGAR DIAGNOSTIC STRIP TEST SCH ×5 (00:18→23:42)
[2021-01-15] MEDS: METOCLOPRAMIDE HCL 10MG/2ML VIAL IV SCH ×4 (00:19→18:00)
[2021-01-15] MEDS: HYDROCORTISONE SOD SUCCINATE 100 MG/2 ML VIAL IV SCH ×3 (05:30→21:43)
[2021-01-15] MEDS: SUCRALFATE 1 G/10 ML UDC PO SCH ×3 (05:30→21:43)
[2021-01-15] MEDS: INSULIN LISPRO 100 UNITS/ML SUBCUT SCH ×5 (05:30→23:42)
[2021-01-15 05:46] LABS: HEMATOCRIT. 28.4 % (42.0-52.0); HEMOGLOBIN. 9.8 g/dL (14.0-18.0); MEAN CORPUSCULAR HEMOGLOBIN 32.7 pg (28.0-32.0); MEAN CORPUSCULAR VOLUME 94.7 fL (80.0-94.0); MEAN PLATELET VOLUME 9.3 fl (7.4-10.4); PLATELET 118 x1000/uL (130-400); RED CELL DISTRIBUTION WIDTH 15.4 % (11.6-14.6)
[2021-01-15 06:13] LABS: PHOSPHORUS 3.5 mg/dL (2.5-4.9)
[2021-01-15 07:19] LABS: BG BASE EXCESS -4.7 mmol/L (-2.0-2.0); BG CARBOXYHEMOGLOBIN 0.3 % (0.5-1.5); BG HCO3 ACT 18.4 mmol/L (22.0-26.0); BG METHEMOGLOBIN 0.4 % (0.0-1.5); BG OXYHEMOGLOBIN 97.3 % (94.0-97.0); BG PCO2 27.6 mmHg (35.0-45.0); BG PH 7.442 (7.350-7.450); BG PO2 121.5 mmHg (75.0-100.0); BG SAMPLE SITE RIGHT RADIAL; BG TOTAL HEMOGLOBIN 9.9 g/dL (12.0-18.0); BG VENT MODE VENT - AC
[2021-01-15 08:03] LABS: PLATELET ESTIMATE DECREASED
[2021-01-15] MEDS: IPRATROPIUM/ALBUTEROL 0.5-3(2.5)MG/3ML NEB NEB PRN (08:10)
[2021-01-15] MEDS: ZINC SULFATE 220 MG ( 50 ) CAPSULE PO SCH (08:32)
[2021-01-15] MEDS: FOLIC ACID 1MG TABLET PO SCH (08:32)
[2021-01-15] MEDS: CHOLECALCIFEROL (D3) 1000 UNIT TABLET PO SCH (08:32)
[2021-01-15] MEDS: ASCORBIC ACID 500 MG TABLET PO SCH ×2 (08:32→21:43)
[2021-01-15] MEDS: CYANOCOBALAMIN 1000MCG/ML VIAL IM SCH (08:32)
[2021-01-15] MEDS: PANTOPRAZOLE SODIUM 40 MG/VIAL IV SCH ×2 (08:32→16:31)
[2021-01-15] MEDS: SODIUM CHLORIDE 0.9% 1,000 ML IV SCH ×2 (12:02→21:42)
[2021-01-15] MEDS ORDERED: SORBITOL 70% SOLN 30ML NG NR (14:30)
[2021-01-15] MEDS: THIAMINE HCL 100MG TABLET PO SCH (14:40)
[2021-01-15] MEDS: PIPERACILLIN/TAZOBACTAM 3.375 G in DEXTROSE 5% WATER 50 ML IV SCH ×2 (15:06→21:43)
[2021-01-15 16:15] LABS: HEMATOCRIT 28.4 % (42.0-52.0); HEMOGLOBIN 9.6 g/dL (14.0-18.0)
[2021-01-15] MEDS: FENTANYL CITRATE/PF 2,500 MCG in SODIUM CHLORIDE 0.9% 200 ML IV PRN (16:32)
[2021-01-16] VITALS (78 sets, daily range): BP systolic 104–142; BP diastolic 54–90
[2021-01-16] MEDS: METOCLOPRAMIDE HCL 10MG/2ML VIAL IV SCH ×4 (00:14→17:43)
[2021-01-16] MEDS: BLOOD SUGAR DIAGNOSTIC STRIP TEST SCH ×3 (05:27→18:10)
[2021-01-16] MEDS: INSULIN LISPRO 100 UNITS/ML SUBCUT SCH ×3 (05:27→18:00)
[2021-01-16] MEDS: SUCRALFATE 1 G/10 ML UDC PO SCH ×3 (05:34→21:11)
[2021-01-16] MEDS: HYDROCORTISONE SOD SUCCINATE 100 MG/2 ML VIAL IV SCH ×3 (05:34→21:11)
[2021-01-16] MEDS: PIPERACILLIN/TAZOBACTAM 3.375 G in DEXTROSE 5% WATER 50 ML IV SCH ×3 (05:35→21:11)
[2021-01-16 05:57] LABS: HEMATOCRIT. 27.7 % (42.0-52.0); HEMOGLOBIN. 9.4 g/dL (14.0-18.0); MEAN CORPUSCULAR HEMOGLOBIN 32.5 pg (28.0-32.0); MEAN CORPUSCULAR VOLUME 95.8 fL (80.0-94.0); MEAN PLATELET VOLUME 9.6 fl (7.4-10.4); PLATELET 118 x1000/uL (130-400); RED BLOOD CELL COUNT 2.89 mill/uL (4.7-6.1)
[2021-01-16 06:25] LABS: PHOSPHORUS 3.5 mg/dL (2.5-4.9)
[2021-01-16 07:18] LABS: PLATELET ESTIMATE SLIGHTLY DECREASED
[2021-01-16] MEDS: SODIUM CHLORIDE 0.9% 1,000 ML IV SCH ×2 (07:59→17:43)
[2021-01-16 09:33] LABS: BG BASE EXCESS -5.7 mmol/L (-2.0-2.0); BG CARBOXYHEMOGLOBIN 0.1 % (0.5-1.5); BG DEOXYHEMOGLOBIN 2.6 % (0.0-5.0); BG FRACTION INSPIRED OXYGEN 30; BG HCO3 ACT 18.2 mmol/L (22.0-26.0); BG METHEMOGLOBIN 0.3 % (0.0-1.5); BG OXYGEN SATURATION 97.4 % (92.0-98.5); BG PCO2 30.6 mmHg (35.0-45.0); BG PEEP (cmH2O) 0 cmH2O; BG PH 7.393 (7.350-7.450); BG PO2 99.8 mmHg (75.0-100.0); BG SAMPLE SITE LEFT BRACHIAL; BG TOTAL HEMOGLOBIN 10.6 g/dL (12.0-18.0); BG VENT MODE VENT - AC
[2021-01-16] MEDS: CYANOCOBALAMIN 1000MCG/ML VIAL IM SCH (09:36)
[2021-01-16] MEDS: ASCORBIC ACID 500 MG TABLET PO SCH ×2 (09:36→21:11)
[2021-01-16] MEDS: PANTOPRAZOLE SODIUM 40 MG/VIAL IV SCH ×2 (09:36→17:42)
[2021-01-16] MEDS: FOLIC ACID 1MG TABLET PO SCH (09:36)
[2021-01-16] MEDS: ZINC SULFATE 220 MG ( 50 ) CAPSULE PO SCH (09:36)
[2021-01-16] MEDS: THIAMINE HCL 100MG TABLET PO SCH (09:36)
[2021-01-16] MEDS: CHOLECALCIFEROL (D3) 1000 UNIT TABLET PO SCH (09:37)
[2021-01-16 15:30] LABS: BG BASE EXCESS -5.3 mmol/L (-2.0-2.0); BG DEOXYHEMOGLOBIN 1.9 % (0.0-5.0); BG FRACTION INSPIRED OXYGEN 30; BG HCO3 ACT 18.5 mmol/L (22.0-26.0); BG METHEMOGLOBIN 0.3 % (0.0-1.5); BG OXYGEN SATURATION 98.1 % (92.0-98.5); BG OXYHEMOGLOBIN 97.8 % (94.0-97.0); BG PCO2 29.9 mmHg (35.0-45.0); BG PEEP (cmH2O) 0 cmH2O; BG PH 7.409 (7.350-7.450); BG SAMPLE SITE LEFT BRACHIAL; BG TOTAL HEMOGLOBIN 9.2 g/dL (12.0-18.0); BG VENT MODE VENT - CPAP
[2021-01-17] VITALS (33 sets, daily range): BP systolic 91–151; BP diastolic 55–85
[2021-01-17] MEDS: BLOOD SUGAR DIAGNOSTIC STRIP TEST SCH ×4 (00:21→17:42)
[2021-01-17] MEDS: METOCLOPRAMIDE HCL 10MG/2ML VIAL IV SCH ×2 (00:21→05:13)
[2021-01-17] MEDS: ACETYLCYSTEINE 100MG/ML 10% VIAL 4ML INH SCH ×4 (00:30→21:15)
[2021-01-17] MEDS: IPRATROPIUM/ALBUTEROL 0.5-3(2.5)MG/3ML NEB NEB PRN ×3 (00:30→16:52)
[2021-01-17] MEDS: SODIUM CHLORIDE 0.9% 1,000 ML IV SCH ×2 (03:49→21:15)
[2021-01-17] MEDS: SUCRALFATE 1 G/10 ML UDC PO SCH ×3 (05:13→21:16)
[2021-01-17] MEDS: PIPERACILLIN/TAZOBACTAM 3.375 G in DEXTROSE 5% WATER 50 ML IV SCH ×3 (05:13→21:15)
[2021-01-17] MEDS: HYDROCORTISONE SOD SUCCINATE 100 MG/2 ML VIAL IV SCH ×3 (05:13→23:54)
[2021-01-17] MEDS: INSULIN LISPRO 100 UNITS/ML SUBCUT SCH ×4 (05:14→17:43)
[2021-01-17 06:13] LABS: HEMATOCRIT. 26.4 % (42.0-52.0); HEMOGLOBIN. 8.8 g/dL (14.0-18.0); MEAN CORPUSCULAR HEMOGLOBIN 32.3 pg (28.0-32.0); MEAN CORPUSCULAR VOLUME 96.4 fL (80.0-94.0); MEAN PLATELET VOLUME 9.4 fl (7.4-10.4); PLATELET 153 x1000/uL (130-400); RED BLOOD CELL COUNT 2.73 mill/uL (4.7-6.1); RED CELL DISTRIBUTION WIDTH 17.4 % (11.6-14.6)
[2021-01-17 06:32] LABS: PHOSPHORUS 4.1 mg/dL (2.5-4.9)
[2021-01-17] MEDS ORDERED: POTASSIUM CHLORIDE INJ 40 MEQ in DEXT 5% WATER 250 ML IV ONE (07:30)
[2021-01-17] MEDS: PANTOPRAZOLE SODIUM 40 MG/VIAL IV SCH ×2 (09:00→17:43)
[2021-01-17] MEDS: CYANOCOBALAMIN 1000MCG/ML VIAL IM SCH (09:00)
[2021-01-17] MEDS: THIAMINE HCL 100MG TABLET PO SCH (09:01)
[2021-01-17] MEDS: KCL 20MEQ/100ML PREMIX 100 ML IV SCH ×2 (09:01→11:50)
[2021-01-17] MEDS: CHOLECALCIFEROL (D3) 1000 UNIT TABLET PO SCH (09:01)
[2021-01-17] MEDS: ZINC SULFATE 220 MG ( 50 ) CAPSULE PO SCH (09:01)
[2021-01-17] MEDS: ASCORBIC ACID 500 MG TABLET PO SCH ×2 (09:01→21:15)
[2021-01-17] MEDS: FOLIC ACID 1MG TABLET PO SCH (09:01)
[2021-01-17 10:35] LABS: PLATELET ESTIMATE NORMAL
[2021-01-18] VITALS (12 sets, daily range): BP systolic 117–156; BP diastolic 65–79
[2021-01-18] MEDS: ACETYLCYSTEINE 100MG/ML 10% VIAL 4ML INH SCH ×3 (03:15→12:45)
[2021-01-18] MEDS: SUCRALFATE 1 G/10 ML UDC PO SCH ×3 (05:35→21:18)
[2021-01-18] MEDS: PIPERACILLIN/TAZOBACTAM 3.375 G in DEXTROSE 5% WATER 50 ML IV SCH ×3 (05:35→21:18)
[2021-01-18] MEDS: HYDROCORTISONE SOD SUCCINATE 100 MG/2 ML VIAL IV SCH ×2 (05:38→17:37)
[2021-01-18] MEDS: INSULIN LISPRO 100 UNITS/ML SUBCUT SCH ×5 (06:00→23:54)
[2021-01-18] MEDS: BLOOD SUGAR DIAGNOSTIC STRIP TEST SCH ×5 (06:12→23:48)
[2021-01-18 06:30] LABS: PHOSPHORUS 3.4 mg/dL (2.5-4.9)
[2021-01-18] MEDS: ASCORBIC ACID 500 MG TABLET PO SCH ×2 (09:24→20:18)
[2021-01-18] MEDS: FOLIC ACID 1MG TABLET PO SCH (09:24)
[2021-01-18] MEDS: ZINC SULFATE 220 MG ( 50 ) CAPSULE PO SCH (09:24)
[2021-01-18] MEDS: PANTOPRAZOLE SODIUM 40 MG/VIAL IV SCH ×2 (09:24→17:37)
[2021-01-18] MEDS: THIAMINE HCL 100MG TABLET PO SCH (09:25)
[2021-01-18] MEDS: CHOLECALCIFEROL (D3) 1000 UNIT TABLET PO SCH (09:25)
[2021-01-18] MEDS: SODIUM BICARBONATE 150 MEQ in DEXTROSE 5% WATER 1,000 ML IV SCH (11:18)
[2021-01-18 11:55] LABS: HEMATOCRIT. 26.9 % (42.0-52.0); HEMOGLOBIN. 8.8 g/dL (14.0-18.0); MEAN CORPUSCULAR HEMOGLOBIN 32.5 pg (28.0-32.0); MEAN CORPUSCULAR VOLUME 98.8 fL (80.0-94.0); MEAN PLATELET VOLUME 9.4 fl (7.4-10.4); PLATELET 141 x1000/uL (130-400); RED BLOOD CELL COUNT 2.72 mill/uL (4.7-6.1); RED CELL DISTRIBUTION WIDTH 19.3 % (11.6-14.6)
[2021-01-18] MEDS: IPRATROPIUM/ALBUTEROL 0.5-3(2.5)MG/3ML NEB NEB PRN (12:45)
[2021-01-18 14:04] LABS: PLATELET ESTIMATE NORMAL
[2021-01-18] MEDS ORDERED: DILTIAZEM HCL 5MG/ML 5ML VIAL IV NR (17:00)
[2021-01-18] MEDS ORDERED: DILTIAZEM HCL 5MG/ML 5ML VIAL IV PRN (17:30)
[2021-01-18] MEDS: DILTIAZEM HCL 60MG TABLET PO SCH (21:20)
[2021-01-18] MEDS ORDERED: DILTIAZEM HCL 30MG TABLET PO SCH (22:00)
[2021-01-19] VITALS (12 sets, daily range): BP systolic 98–135; BP diastolic 56–75
[2021-01-19] MEDS: IPRATROPIUM/ALBUTEROL 0.5-3(2.5)MG/3ML NEB NEB PRN ×3 (05:06→16:06)
[2021-01-19] MEDS: INSULIN LISPRO 100 UNITS/ML SUBCUT SCH ×3 (06:00→18:00)
[2021-01-19] MEDS: PIPERACILLIN/TAZOBACTAM 3.375 G in DEXTROSE 5% WATER 50 ML IV SCH ×3 (06:14→21:39)
[2021-01-19] MEDS: SUCRALFATE 1 G/10 ML UDC PO SCH ×3 (06:14→21:38)
[2021-01-19] MEDS: HYDROCORTISONE SOD SUCCINATE 100 MG/2 ML VIAL IV SCH (06:14)
[2021-01-19] MEDS: BLOOD SUGAR DIAGNOSTIC STRIP TEST SCH ×3 (06:14→18:00)
[2021-01-19] MEDS: DILTIAZEM HCL 60MG TABLET PO SCH ×3 (06:15→21:38)
[2021-01-19 07:14] LABS: HEMATOCRIT. 30.3 % (42.0-52.0); HEMOGLOBIN. 10.1 g/dL (14.0-18.0); MEAN CORPUSCULAR HEMOGLOBIN 32.8 pg (28.0-32.0); MEAN CORPUSCULAR VOLUME 98.2 fL (80.0-94.0); MEAN PLATELET VOLUME 9.6 fl (7.4-10.4); PLATELET 150 x1000/uL (130-400); RED BLOOD CELL COUNT 3.08 mill/uL (4.7-6.1)
[2021-01-19 07:30] LABS: PHOSPHORUS 3.2 mg/dL (2.5-4.9)
[2021-01-19] MEDS: ACETYLCYSTEINE 100MG/ML 10% VIAL 4ML INH SCH ×2 (09:19→16:02)
[2021-01-19] MEDS: PANTOPRAZOLE SODIUM 40 MG/VIAL IV SCH ×2 (09:39→17:00)
[2021-01-19] MEDS: ZINC SULFATE 220 MG ( 50 ) CAPSULE PO SCH (09:39)
[2021-01-19] MEDS: ASCORBIC ACID 500 MG TABLET PO SCH ×2 (09:39→21:39)
[2021-01-19] MEDS: FOLIC ACID 1MG TABLET PO SCH (09:40)
[2021-01-19] MEDS: CHOLECALCIFEROL (D3) 1000 UNIT TABLET PO SCH (09:40)
[2021-01-19] MEDS: THIAMINE HCL 100MG TABLET PO SCH (09:41)
[2021-01-19 11:06] LABS: BG BASE EXCESS -3.9 mmol/L (-2.0-2.0); BG CARBOXYHEMOGLOBIN 0.3 % (0.5-1.5); BG DEOXYHEMOGLOBIN 5.6 % (0.0-5.0); BG FRACTION INSPIRED OXYGEN 28; BG HCO3 ACT 19.8 mmol/L (22.0-26.0); BG METHEMOGLOBIN 0.3 % (0.0-1.5); BG OXYGEN SATURATION 94.4 % (92.0-98.5); BG OXYHEMOGLOBIN 93.8 % (94.0-97.0); BG PCO2 31.3 mmHg (35.0-45.0); BG SAMPLE SITE RIGHT RADIAL; BG TOTAL HEMOGLOBIN 9.6 g/dL (12.0-18.0); BG TOTAL RESPIRATORY RATE 25 b/min; BG VENT MODE NASAL CANNULA
[2021-01-19 11:21] LABS: PLATELET ESTIMATE NORMAL
[2021-01-19] MEDS: SODIUM BICARBONATE 150 MEQ in DEXTROSE 5% WATER 1,000 ML IV SCH (12:29)
[2021-01-19] MEDS: ALBUTEROL (0.083%) 2.5MG/3ML NEB HHN SCH (21:20)
[2021-01-20] VITALS (11 sets, daily range): BP systolic 101–121; BP diastolic 50–73
[2021-01-20] MEDS: INSULIN LISPRO 100 UNITS/ML SUBCUT SCH ×4 (00:29→17:31)
[2021-01-20] MEDS: BLOOD SUGAR DIAGNOSTIC STRIP TEST SCH ×4 (00:29→17:31)
[2021-01-20] MEDS: ALBUTEROL (0.083%) 2.5MG/3ML NEB HHN SCH ×5 (01:18→21:27)
[2021-01-20] MEDS: ACETYLCYSTEINE 100MG/ML 10% VIAL 4ML INH SCH ×3 (01:18→21:27)
[2021-01-20] MEDS: SUCRALFATE 1 G/10 ML UDC PO SCH ×3 (05:11→21:40)
[2021-01-20] MEDS: PIPERACILLIN/TAZOBACTAM 3.375 G in DEXTROSE 5% WATER 50 ML IV SCH ×3 (05:11→22:49)
[2021-01-20] MEDS: DILTIAZEM HCL 60MG TABLET PO SCH ×3 (05:12→21:41)
[2021-01-20] MEDS: FOLIC ACID 1MG TABLET PO SCH (09:49)
[2021-01-20] MEDS: THIAMINE HCL 100MG TABLET PO SCH (09:49)
[2021-01-20] MEDS: CHOLECALCIFEROL (D3) 1000 UNIT TABLET PO SCH (09:49)
[2021-01-20] MEDS: ASCORBIC ACID 500 MG TABLET PO SCH ×2 (09:49→20:25)
[2021-01-20] MEDS: ZINC SULFATE 220 MG ( 50 ) CAPSULE PO SCH (09:49)
[2021-01-20] MEDS: PANTOPRAZOLE SODIUM 40 MG/VIAL IV SCH ×2 (09:49→17:31)
[2021-01-20 10:45] LABS: HEMATOCRIT. 29.3 % (42.0-52.0); HEMOGLOBIN. 9.6 g/dL (14.0-18.0); MEAN CORPUSCULAR HEMOGLOBIN 33.1 pg (28.0-32.0); MEAN CORPUSCULAR VOLUME 100.5 fL (80.0-94.0); MEAN PLATELET VOLUME 9.3 fl (7.4-10.4); PLATELET 106 x1000/uL (130-400); RED BLOOD CELL COUNT 2.91 mill/uL (4.7-6.1); RED CELL DISTRIBUTION WIDTH 19.6 % (11.6-14.6)
[2021-01-20 10:59] LABS: PHOSPHORUS 2.6 mg/dL (2.5-4.9)
[2021-01-20] MEDS: IPRATROPIUM/ALBUTEROL 0.5-3(2.5)MG/3ML NEB NEB PRN (11:09)
[2021-01-20 11:55] LABS: PLATELET ESTIMATE SLIGHTLY DECREASED
[2021-01-20] MEDS: SODIUM BICARBONATE 150 MEQ in DEXTROSE 5% WATER 1,000 ML IV SCH (13:46)
[2021-01-20] MEDS ORDERED: POTASSIUM CHLORIDE INJ 40 MEQ in DEXT 5% WATER 250 ML IV ONE (14:45)
[2021-01-20] MEDS: KCL 20MEQ/100ML PREMIX 100 ML IV SCH ×2 (17:31→19:46)
[2021-01-21] VITALS (16 sets, daily range): BP systolic 86–121; BP diastolic 58–89
[2021-01-21] MEDS: INSULIN LISPRO 100 UNITS/ML SUBCUT SCH ×4 (00:26→17:14)
[2021-01-21] MEDS: BLOOD SUGAR DIAGNOSTIC STRIP TEST SCH ×4 (00:26→17:14)
[2021-01-21] MEDS: ALBUTEROL (0.083%) 2.5MG/3ML NEB HHN SCH ×5 (01:44→17:05)
[2021-01-21] MEDS: DILTIAZEM HCL 60MG TABLET PO SCH ×2 (05:53→13:55)
[2021-01-21] MEDS: SUCRALFATE 1 G/10 ML UDC PO SCH ×2 (05:53→13:54)
[2021-01-21 08:28] LABS: HEMATOCRIT. 27.3 % (42.0-52.0); HEMOGLOBIN. 9.1 g/dL (14.0-18.0); MEAN CORPUSCULAR HEMOGLOBIN 33.3 pg (28.0-32.0); MEAN CORPUSCULAR VOLUME 99.5 fL (80.0-94.0); MEAN PLATELET VOLUME 9.4 fl (7.4-10.4); PLATELET 96 x1000/uL (130-400); RED BLOOD CELL COUNT 2.74 mill/uL (4.7-6.1); RED CELL DISTRIBUTION WIDTH 20.1 % (11.6-14.6)
[2021-01-21] MEDS: PANTOPRAZOLE SODIUM 40 MG/VIAL IV SCH ×2 (09:01→17:22)
[2021-01-21] MEDS: FOLIC ACID 1MG TABLET PO SCH (09:02)
[2021-01-21] MEDS: THIAMINE HCL 100MG TABLET PO SCH (09:02)
[2021-01-21] MEDS: ASCORBIC ACID 500 MG TABLET PO SCH (09:02)
[2021-01-21] MEDS: CHOLECALCIFEROL (D3) 1000 UNIT TABLET PO SCH (09:02)
[2021-01-21] MEDS: ZINC SULFATE 220 MG ( 50 ) CAPSULE PO SCH (09:02)
[2021-01-21] MEDS: ACETYLCYSTEINE 100MG/ML 10% VIAL 4ML INH SCH ×2 (10:10→17:05)
[2021-01-21] MEDS: SODIUM BICARBONATE 150 MEQ in DEXTROSE 5% WATER 1,000 ML IV SCH (11:11)
[2021-01-21] MEDS ORDERED: DEXT 5%/0.2% NACL 1,000 ML IV SCH (12:45)
[2021-01-21] MEDS ORDERED: DIGOXIN 500MCG/2ML AMP IV NR ×2 (13:00→17:30)
[2021-01-21 23:10] LABS: PLATELET ESTIMATE DECREASED
[2021-01-23 15:06] LABS: OVA & PARASITE EXAM Final report (.)
== END 2021-01-21 20:30 | disposition short-term general hospital (02) | DRG 853 ==
LOC: ER 03:23 → 7EST 06:14 → ENRESERV 12:55 → CVICU 01-06 22:40 → 3WST 01-17 19:08
PROVIDERS: ADMIT Internal Medicine; ATTEND Internal Medicine
PROC: 5A1955Z Respiratory Ventilation, Greater than 96 Consecutive Hours (ICD-10-PCS; principal; 2021-01-06)
PROC: 0BH17EZ Insertion of Endotracheal Airway into Trachea, Via Natural or Artificial Opening (ICD-10-PCS; 2021-01-06)
PROC: 02HV33Z Insertion of Infusion Device into Superior Vena Cava, Percutaneous Approach (ICD-10-PCS; 2021-01-06)
PROC: B548ZZA Ultrasonography of Superior Vena Cava, Guidance (ICD-10-PCS; 2021-01-06)
PROC: 30233N1 Transfusion of Nonautologous Red Blood Cells into Peripheral Vein, Percutaneous Approach (ICD-10-PCS; 2021-01-06)
PROC: 30233K1 Transfusion of Nonautologous Frozen Plasma into Peripheral Vein, Percutaneous Approach (ICD-10-PCS; 2021-01-07)
PROC: 0D998ZZ Drainage of Duodenum, Via Natural or Artificial Opening Endoscopic (ICD-10-PCS; 2021-01-09)
PROC: 0DC68ZZ Extirpation of Matter from Stomach, Via Natural or Artificial Opening Endoscopic (ICD-10-PCS; 2021-01-09)
PROC: 0D968ZZ Drainage of Stomach, Via Natural or Artificial Opening Endoscopic (ICD-10-PCS; 2021-01-12)
DX: A41.9 Sepsis, unspecified organism (principal); E43 Unspecified severe protein-calorie malnutrition; N17.0 Acute kidney failure with tubular necrosis; J96.01 Acute respiratory failure with hypoxia; R65.21 Severe sepsis with septic shock; I46.9 Cardiac arrest, cause unspecified; K25.4 Chronic or unspecified gastric ulcer with hemorrhage; D68.9 Coagulation defect, unspecified; E72.20 Disorder of urea cycle metabolism, unspecified; G93.40 Encephalopathy, unspecified; D62 Acute posthemorrhagic anemia; E87.0 Hyperosmolality and hypernatremia; E87.1 Hypo-osmolality and hyponatremia; Z68.1 Body mass index [BMI] 19.9 or less, adult; J44.9 Chronic obstructive pulmonary disease, unspecified; D52.9 Folate deficiency anemia, unspecified; N18.9 Chronic kidney disease, unspecified; D53.9 Nutritional anemia, unspecified; D69.6 Thrombocytopenia, unspecified; E78.5 Hyperlipidemia, unspecified; E83.39 Other disorders of phosphorus metabolism; E83.51 Hypocalcemia; E87.5 Hyperkalemia; E87.6 Hypokalemia; I12.9 Hypertensive chronic kidney disease with stage 1 through stage 4 chronic kidney disease, or unspecified chronic kidney disease; I25.10 Atherosclerotic heart disease of native coronary artery without angina pectoris; S40.821A Blister (nonthermal) of right upper arm, initial encounter; Z53.20 Procedure and treatment not carried out because of patient's decision for unspecified reasons; S40.021A Contusion of right upper arm, initial encounter; X58.XXXA Exposure to other specified factors, initial encounter; I48.91 Unspecified atrial fibrillation; R74.01 Elevation of levels of liver transaminase levels; G90.8 Other disorders of autonomic nervous system; R74.8 Abnormal levels of other serum enzymes; K14.0 Glossitis; R62.7 Adult failure to thrive; Z20.822 Contact with and (suspected) exposure to COVID-19; L89.156 Pressure-induced deep tissue damage of sacral region; I71.4 Abdominal aortic aneurysm, without rupture; Y93.89 Activity, other specified; Y92.89 Other specified places as the place of occurrence of the external cause; Y99.8 Other external cause status; Z78.1 Physical restraint status; Z90.49 Acquired absence of other specified parts of digestive tract; Z91.81 History of falling; Z95.1 Presence of aortocoronary bypass graft
CPT/HCPCS: 36415; 36600; 70551; 71045; 74018; 76700; 76770; 78580; 80048; 80053; 80076; 80202; 80305; 81003; 82105; 82140; 82248; 82270; 82375; 82378; 82550; 82553; 82607; 82728; 82746; 82805; 82962; 83540; 83550; 83605; 83615; 83735; 84100; 84132; 84134; 84145; 84439; 84443; 84484; 85014; 85018; 85025; 85044; 85379; 85384; 86301; 86850; 86900; 86920; 86927; 87070; 87106; 87177; 87209; 87426; 89055; 92610; 93005; 93306; 93922; 93970; 93971; 94002; 94003; 94640; 94667; 97110; 97162; 97166; 97530; 99285; A6261; C1893; C9113; J0692; J1160; J1200; J1450; J1650; J1720; J1815; J1885; J2060; J2250; J2270; J2354; J2543; J2765; J3010; J3370; J3420; J3430; J3480; J3490; J7030; J7040; J7042; J7050; J7060; J7070; J7608; P9016; P9017